=== PATIENT | female | born 1985 | race Caucasian/White ===

== ENCOUNTER 2016-11-21 11:59 | Emergency (ER) | payer OTHER ==
[~2016-11-21] VITALS: Ht 162.6 cm; Wt 62.0 kg
[~2016-11-21 11:59] MED LIST: IBUP-1222 PO
[2016-11-21 12:02] VITALS: BP 90/55
[2016-11-21] MEDS ORDERED: HYDROcodone/APAP 5/325 TABLET ONE (12:46)
[2016-11-21] MEDS ORDERED: HYDROcodone/APAP 5/325 TABLET PO ONE (13:00)
[2016-11-21] MEDS ORDERED: AMOXICILLIN 500 MG CAPSULE PO ONE (13:00)
== END 2016-11-21 13:21 | disposition home or self-care (01) ==
LOC: ED 13:15
DX: K02.9 Dental caries, unspecified (principal)
CPT/HCPCS: 99283

== ENCOUNTER 2016-12-07 13:36 | Emergency (ER) | payer MEDICAID, OTHER ==
[~2016-12-07] VITALS: Ht 162.6 cm; Wt 60.0 kg
[2016-12-07] MEDS ORDERED: IBUPROFEN 200 MG TABLET ONE (14:20)
[2016-12-07] MEDS ORDERED: IBUPROFEN 200 MG TABLET PO ONE (14:30)
[2016-12-07 15:06] VITALS: BP 123/79
== END 2016-12-07 15:08 | disposition home or self-care (01) ==
LOC: ED 14:45
DX: S00.03XA Contusion of scalp, initial encounter (principal); W01.198A Fall on same level from slipping, tripping and stumbling with subsequent striking against other object, initial encounter; Y93.89 Activity, other specified; Y92.89 Other specified places as the place of occurrence of the external cause; Y99.8 Other external cause status
CPT/HCPCS: 72110; 99284

== ENCOUNTER 2016-12-10 12:58 | Emergency (ER) | payer MEDICAID ==
[~2016-12-10] VITALS: Ht 162.6 cm; Wt 61.6 kg
[2016-12-10] MEDS ORDERED: SODIUM CHLORIDE FLUSH 10ML SYR IVF ONE (14:30)
[2016-12-10] MEDS ORDERED: SODIUM CHLORIDE 0.9% 1,000ML IVBOLUS ONE (14:30)
[2016-12-10] MEDS ORDERED: METOCLOPRAMIDE 5 MG/ML, 2ML ONE (14:30)
[2016-12-10] MEDS ORDERED: DIPHENHYDRAMINE 50 MG/ML, 1ML IVPush ONE (14:30)
[2016-12-10] MEDS ORDERED: KETOROLAC 30 MG/1 ML ONE (14:30)
[2016-12-10] MEDS ORDERED: METOCLOPRAMIDE 5 MG/ML, 2ML IVPush ONE (14:30)
[2016-12-10] MEDS ORDERED: DIPHENHYDRAMINE 50 MG/ML, 1ML ONE (14:30)
[2016-12-10] MEDS ORDERED: KETOROLAC 30 MG/1 ML IVPush ONE (14:30)
[2016-12-10 18:46] VITALS: BP 98/60
== END 2016-12-10 19:08 | disposition home or self-care (01) ==
LOC: ED 14:26
DX: S06.0X0A Concussion without loss of consciousness, initial encounter (principal); R11.2 Nausea with vomiting, unspecified; X58.XXXA Exposure to other specified factors, initial encounter; Y93.89 Activity, other specified; Y92.89 Other specified places as the place of occurrence of the external cause; Y99.8 Other external cause status
CPT/HCPCS: 70450; 72125; 96361; 96374; 96375; 99284; J1200; J1885; J2765; J7030

== ENCOUNTER 2017-11-11 17:54 | Emergency (ER) | payer SELFPAY ==
[~2017-11-11] VITALS: Ht 162.6 cm; Wt 60.0 kg
[2017-11-11 19:42] VITALS: BP 106/67
== END 2017-11-11 20:23 | disposition home or self-care (01) ==
LOC: ED 20:18
DX: S06.0X0A Concussion without loss of consciousness, initial encounter (principal); S16.1XXA Strain of muscle, fascia and tendon at neck level, initial encounter; S29.012A Strain of muscle and tendon of back wall of thorax, initial encounter; S39.012A Strain of muscle, fascia and tendon of lower back, initial encounter; W01.0XXA Fall on same level from slipping, tripping and stumbling without subsequent striking against object, initial encounter; Y93.89 Activity, other specified; Y99.8 Other external cause status; Y92.002 Bathroom of unspecified non-institutional (private) residence as the place of occurrence of the external cause
CPT/HCPCS: 70450; 72072; 72110; 72125; 99284

== ENCOUNTER 2018-01-27 14:29 | Emergency (ER) | payer MEDICAID ==
[~2018-01-27] VITALS: Ht 162.6 cm; Wt 65.0 kg
[2018-01-27 14:39] VITALS: BP 108/75
== END 2018-01-27 15:22 | disposition home or self-care (01) ==
LOC: ED 15:04
DX: H65.03 Acute serous otitis media, bilateral (principal); J00 Acute nasopharyngitis [common cold]; Z87.891 Personal history of nicotine dependence
CPT/HCPCS: 99283

== ENCOUNTER 2018-03-12 12:21 | Emergency (ER) | payer MEDICAID ==
[~2018-03-12] VITALS: Ht 162.6 cm; Wt 65.0 kg
[2018-03-12 12:41] VITALS: BP 102/54
== END 2018-03-12 14:13 | disposition home or self-care (01) ==
LOC: ED 12:51
DX: J18.0 Bronchopneumonia, unspecified organism (principal)
CPT/HCPCS: 71046; 99283

== ENCOUNTER 2018-06-18 13:34 | Emergency (ER) | payer MEDICAID ==
[~2018-06-18] VITALS: Ht 162.6 cm; Wt 66.5 kg
[2018-06-18 14:17] VITALS: BP 116/46
[2018-06-18] MEDS ORDERED: DEXAMETHASONE 4 MG TABLET PO STA (14:34)
[2018-06-18] MEDS ORDERED: DEXAMETHASONE 4 MG TABLET ONE (15:36)
== END 2018-06-18 15:58 | disposition home or self-care (01) ==
LOC: ED 15:46
DX: J02.8 Acute pharyngitis due to other specified organisms (principal); K04.7 Periapical abscess without sinus; H92.02 Otalgia, left ear
CPT/HCPCS: 87081; 87880; 99283

== ENCOUNTER 2018-07-15 22:50 | Emergency (ER) | payer SELFPAY ==
--- NOTE | 2018-07-15 23:02 | NUR ---
Pt wheeled to room with EDT.
--- NOTE | 2018-07-15 23:05 | NUR ---
Debra MARSH, at bedside to evaluate pt.
--- NOTE | 2018-07-15 23:14 | NUR ---
Pt in CT.
--- NOTE | 2018-07-15 23:24 | NUR ---
Pt back to room from imaging.
[2018-07-15] MEDS ORDERED: KETOROLAC 30 MG/1 ML IM ONE (23:30)
--- NOTE | 2018-07-16 00:15 | NUR ---
Radiology called regarding long wait on CT read. endo tech states that he will look into it.
[2018-07-16] MEDS ORDERED: METHOCARBAMOL 750 MG TABLET PO ONE (00:30)
--- NOTE | 2018-07-16 00:36 | NUR ---
Radiology called regarding long wait time for results. technical support specialist states that [facility] is aware that the pt is next on the queue, she will be down to get pt for additional rad tests as soon as she sees the reading is complete.
--- NOTE | 2018-07-16 00:53 | NUR ---
CT results of neck negative. C-collar removed by radar tester. Pt to imaging, with tech, via mike.
--- NOTE | 2018-07-16 01:08 | NUR ---
Pt back to room from imaging and upself to bathroom.
--- NOTE | 2018-07-16 01:54 | NUR ---
CT called, pt has had a tubal ligation so they were made aware that no HCG is necessary prior to CT.
--- NOTE | 2018-07-16 02:05 | NUR ---
Pt back to room from CT.
[2018-07-16 02:27] VITALS: BP 107/67
--- NOTE | 2018-07-16 02:38 | NUR ---
Dr. Lainez at bedside to discuss ED findings and d/c information. Pt given discharge instructions and she has confirmed that she understands the instructions. Pt ambulatory with steady gait.
== END 2018-07-16 02:42 | disposition home or self-care (01) ==
LOC: ED 23:14
DX: S33.5XXA Sprain of ligaments of lumbar spine, initial encounter (principal); S16.1XXA Strain of muscle, fascia and tendon at neck level, initial encounter; Z87.01 Personal history of pneumonia (recurrent); Z98.51 Tubal ligation status; V49.19XA Passenger injured in collision with other motor vehicles in nontraffic accident, initial encounter; Y93.89 Activity, other specified; Y92.89 Other specified places as the place of occurrence of the external cause; Y99.8 Other external cause status
CPT/HCPCS: 72110; 72125; 72131; 99284

== ENCOUNTER 2018-07-24 14:49 | Emergency (ER) | payer SELFPAY ==
[~2018-07-24] VITALS: Ht 162.6 cm; Wt 65.0 kg
[2018-07-24 14:51] VITALS: BP 93/66
== END 2018-07-24 15:23 | disposition home or self-care (01) ==
LOC: ED 15:15
DX: K02.9 Dental caries, unspecified (principal); B34.9 Viral infection, unspecified
CPT/HCPCS: 99283

== ENCOUNTER 2018-09-13 21:19 | Emergency (ER) | payer SELFPAY ==
[~2018-09-13] VITALS: Ht 162.6 cm; Wt 65.6 kg
[2018-09-13 21:21] VITALS: BP 104/64
--- NOTE | 2018-09-13 22:16 | NUR ---
PT AMBULATED STEADILY TO BATHROOM FOR UA. UA COLLECTED AND SENT TO LAB
[2018-09-13 22:34] LABS: CULTURE INDICATED? NO; HCG UR SG 1.009 (1.003-1.030); MICROSCOPIC AUTO
[2018-09-13] MEDS ORDERED: KETOROLAC 30 MG/1 ML ONE (23:17)
[2018-09-13] MEDS ORDERED: KETOROLAC 30 MG/1 ML IM ONE (23:30)
--- NOTE | 2018-09-13 23:31 | NUR ---
DC EDUCATION PROVIDED, PT DEMONSTRATES UNDERSTANDING. PT AMBULATED STEADILY TO DC WITH RN
== END 2018-09-13 23:32 | disposition home or self-care (01) ==
LOC: ED 23:00
DX: G89.11 Acute pain due to trauma (principal); M54.5 Low back pain; M25.521 Pain in right elbow; J32.9 Chronic sinusitis, unspecified; R51 Headache; R93.5 Abnormal findings on diagnostic imaging of other abdominal regions, including retroperitoneum; R07.89 Other chest pain; W01.0XXA Fall on same level from slipping, tripping and stumbling without subsequent striking against object, initial encounter; Y93.89 Activity, other specified; Y92.89 Other specified places as the place of occurrence of the external cause; Y99.8 Other external cause status
CPT/HCPCS: 70450; 71101; 72110; 73080; 81001; 81025; 96372; 99284; J1885

== ENCOUNTER 2019-04-30 14:32 | Emergency (ER) | payer MEDICAID ==
[2019-04-30 14:45] VITALS: BP 82/58
[2019-04-30] MEDS ORDERED: DEXAMETHASONE 4 MG TABLET PO ONE (15:47)
[2019-04-30] MEDS ORDERED: KETOROLAC 30 MG/1 ML IM ONE (16:00)
--- NOTE | 2019-04-30 16:02 | NUR ---
PT TO XRAY
[2019-04-30] MEDS ORDERED: KETOROLAC 30 MG/1 ML ONE (16:04)
[2019-04-30] MEDS ORDERED: DEXAMETHASONE 4 MG TABLET ONE (16:04)
== END 2019-04-30 17:07 | disposition home or self-care (01) ==
LOC: ED 16:06
DX: J20.8 Acute bronchitis due to other specified organisms (principal); K08.89 Other specified disorders of teeth and supporting structures; J02.9 Acute pharyngitis, unspecified; Z98.51 Tubal ligation status
CPT/HCPCS: 71046; 96372; 99283; J1885

== ENCOUNTER 2019-06-02 10:25 | Emergency (ER) | payer MEDICAID ==
[~2019-06-02] VITALS: Ht 162.6 cm; Wt 63.1 kg
[2019-06-02 10:34] VITALS: BP 94/64
[2019-06-02 12:00] LABS: RAPID INFLUENZA A Negative (Negative); RAPID INFLUENZA B Negative (Negative)
== END 2019-06-02 12:50 | disposition home or self-care (01) ==
LOC: ED 12:20
DX: J06.9 Acute upper respiratory infection, unspecified (principal); J02.9 Acute pharyngitis, unspecified; H92.02 Otalgia, left ear; F17.200 Nicotine dependence, unspecified, uncomplicated
CPT/HCPCS: 71046; 87400; 99284

== ENCOUNTER 2019-06-20 11:59 | Emergency (ER) | payer MEDICAID ==
[~2019-06-20] VITALS: Ht 162.6 cm; Wt 64.9 kg
[2019-06-20 12:02] VITALS: BP 96/61
--- NOTE | 2019-06-20 12:41 | NUR ---
PT GIVEN DC INSTRUCTIONS AND SCRIPT, EDUCATED REGARDING RX FOR NAPROSYN. PT AMBULATORY TO DC WITH STEADY GAIT. NADN AT DC.
== END 2019-06-20 12:42 ==
LOC: ED 12:30
DX: K02.9 Dental caries, unspecified (principal); H92.01 Otalgia, right ear; F17.200 Nicotine dependence, unspecified, uncomplicated
CPT/HCPCS: 99283

== ENCOUNTER 2019-12-03 19:22 | Emergency (ER) | payer MEDICAID ==
[~2019-12-03] VITALS: Ht 162.6 cm; Wt 67.0 kg
[2019-12-03 19:31] VITALS: BP 96/60
--- NOTE | 2019-12-03 19:39 | NUR ---
TWO TEETH EXTRACTED ON THURSDAY, COMPLAINTING OF ON AND OFF ABD PAIN X A WEEK AND EAR DISCOMFORT
== END 2019-12-03 21:18 | disposition home or self-care (01) ==
LOC: ED 20:41
DX: H92.03 Otalgia, bilateral (principal); K08.89 Other specified disorders of teeth and supporting structures; R19.7 Diarrhea, unspecified; F17.200 Nicotine dependence, unspecified, uncomplicated; Z98.51 Tubal ligation status
CPT/HCPCS: 99283

== ENCOUNTER 2020-01-21 12:14 | Emergency (ER) | payer MEDICAID ==
[~2020-01-21] VITALS: Ht 162.6 cm; Wt 64.2 kg
[2020-01-21 12:22] VITALS: BP 95/56
--- NOTE | 2020-01-21 13:09 | NUR ---
PT C/O JAW PAIN AFTER TOOTH REMOVAL RECENTLY. PT ALSO STATES SHE HAS INCREASED MUCUS PRODUCTION, RIGHT EAR PAIN AND SORE THROAT. PT STATES SHE WAS AT THE HOSPITAL RECENTLY AND WAS GIVEN AN ANTIBIOTIC FOR A TOOTH INFECTION.
== END 2020-01-21 13:32 | disposition home or self-care (01) ==
LOC: ED 13:20
DX: K08.89 Other specified disorders of teeth and supporting structures (principal); B34.9 Viral infection, unspecified; F17.210 Nicotine dependence, cigarettes, uncomplicated; Z98.51 Tubal ligation status
CPT/HCPCS: 99283; 99406

== ENCOUNTER 2020-04-15 12:09 | Emergency (ER) | payer MEDICAID ==
[~2020-04-15] VITALS: Ht 162.6 cm; Wt 63.1 kg
[2020-04-15] MEDS ORDERED: METHOCARBAMOL 750 MG TABLET ONE (12:53)
[2020-04-15] MEDS ORDERED: KETOROLAC 30 MG/1 ML ONE (12:53)
[2020-04-15] MEDS ORDERED: KETOROLAC 30 MG/1 ML IM ONE (13:00)
[2020-04-15] MEDS ORDERED: METHOCARBAMOL 750 MG TABLET PO ONE (13:00)
[2020-04-15 13:07] LABS: BASOPHILS % (AUTO) 1 % (0-1); EOSINOPHILS % (AUTO) 5 % (1-7); LYMPHOCYTES % (AUTO) 34 % (22-44); MEAN CORPUSCULAR HEMOGLOBIN 28.3 pg (27.0-34.8); MEAN CORPUSCULAR HGB CONC 33.2 g/dL (32.4-35.8); MEAN PLATELET VOLUME 9.2 fL (7.4-10.4); MONOCYTES % (AUTO) 8 % (2-9); NEUTROPHILS % (AUTO) 52 % (42-75); PLATELET COUNT 284 x10^3/uL (130-400); RED BLOOD COUNT 4.22 x10^6/uL (3.82-5.3); RED CELL DISTRIBUTION WIDTH 14.3 % (9.6-15.2)
[2020-04-15 13:10] LABS: MD NO
[2020-04-15 13:16] LABS: ALBUMIN 3.8 g/dL (3.4-5.0); ANION GAP 3 mmol/L (5-15); CALCIUM 9.1 mg/dL (8.5-10.1); CHLORIDE 114 mmol/L (98-107); CREATININE 0.78 mg/dL (0.55-1.02)
[2020-04-15 13:20] LABS: TROPONIN I < 0.015 ng/mL (0.000-0.045)
[2020-04-15] MEDS ORDERED: SODIUM CHLORIDE 0.9% 1,000ML IVBOLUS ONE (14:30)
[2020-04-15 15:32] VITALS: BP 100/70
== END 2020-04-15 15:48 | disposition home or self-care (01) ==
LOC: ED 13:00
DX: R07.89 Other chest pain (principal); F41.1 Generalized anxiety disorder; I51.7 Cardiomegaly; I49.8 Other specified cardiac arrhythmias; M54.2 Cervicalgia; F17.200 Nicotine dependence, unspecified, uncomplicated; Z98.51 Tubal ligation status
CPT/HCPCS: 36415; 71045; 80048; 82040; 84484; 85025; 93005; 96360; 96372; 99285; J1885; J7030